=== PATIENT | female | born 1980 | race Caucasian/White ===

== ENCOUNTER 2020-09-07 09:17 | Emergency (ER) | payer OTHER ==
[2020-09-07 10:12] LABS: BASOPHIL 0.4 % (0-2); EOSINOPHIL 0.5 % (0-5); HCT 40.3 % (37.0-47.0); HGB 13.6 g/dl (12.5-16.0); LYMPHOCYTE 14.5 % (15-48); MCH 29.5 pg (25.0-31.0); MCHC 33.7 g/dL (32.0-36.0); MCV 87.4 fL (78.0-100.0); MONOCYTE 3.8 % (0-12); MPV 9.3 fL (6.0-9.5); NEUTROPHIL 80.4 % (41-80); NRBC 0; PLT 299 K/uL (150-400); RBC 4.61 M/uL (4.20-5.40); WBC 12.2 K/uL (4.0-10.5)
[2020-09-07 10:30] LABS: ALBUMIN 3.8 g/dL (3.4-5.0); BILIRUBIN - TOTAL 0.6 mg/dL (0.2-1.0); GLOBULIN (CALCULATION) 3.4 g/dL; POTASSIUM 3.7 mmol/L (3.5-5.1); TOTAL PROTEIN 7.2 g/dL (6.4-8.2)
[2020-09-07 11:27] LABS: BILIRUBIN NEGATIVE (NEGATIVE); BLOOD 3+ Ery/uL (NEGATIVE); COLOR YELLOW (YELLOW); GLUCOSE (U) NORMAL (NORMAL); LEUKOCYTES NEGATIVE Leu/uL (NEGATIVE); NITRITE NEGATIVE (NEGATIVE); PROTEIN 1+ mg/dL (NEGATIVE); SPECIFIC GRAVITY >=1.030 (1.001-1.030); UROBILINOGEN 0.2 mg/dL (0.2-1.0)
[2020-09-07 11:28] LABS: CLARITY CLOUDY (CLEAR)
[2020-09-07 11:34] LABS: BACTERIA TRACE; URIC ACID CRYSTALS LARGE
[2020-09-07] MEDS ORDERED: HYDROCODON-ACE1 EAC2 PO (11:45)
[2020-09-07] MEDS ORDERED: FLOMAX 0.4 MG0.4 MG PO (11:45)
[2020-09-07] MEDS ORDERED: ONDANSETRON ODT4 MG PO (11:45)
== END 2020-09-07 12:10 | disposition home or self-care (01) ==
LOC: FER 09:17
PROVIDERS: Emergency Medicine
DX: N13.2 Hydronephrosis with renal and ureteral calculous obstruction (principal); I10 Essential (primary) hypertension; Z88.8 Allergy status to other drugs, medicaments and biological substances; Z79.899 Other long term (current) drug therapy; Z98.890 Other specified postprocedural states
CPT/HCPCS: 36415; 80053; 81001; 85025; J1885; J2405; J2550; J7030